=== PATIENT | male | born 1985 | race Caucasian/White ===

== ENCOUNTER 2021-06-20 07:47 | Emergency (ER) | payer OTHER ==
[2021-06-20 08:48] LABS: BASOPHIL 0.4 % (0-2); EOSINOPHIL 3.4 % (0-5); HCT 45.6 % (42.0-52.0); HGB 15.6 g/dl (13.2-18.0); LYMPHOCYTE 18.4 % (15-48); MCH 30.1 pg (25.0-31.0); MCHC 34.2 g/dL (32.0-36.0); MCV 87.9 fL (78.0-100.0); MONOCYTE 7.3 % (0-12); MPV 9.7 fL (6.0-9.5); NEUTROPHIL 69.7 % (41-80); NRBC 0; PLT 290 K/uL (150-400); RBC 5.19 M/uL (4.70-6.00); RDW 12.1 % (11.5-14.0); WBC 12.5 K/uL (4.0-10.5)
[2021-06-20 09:31] LABS: ALBUMIN 3.7 g/dL (3.4-5.0); BILIRUBIN - TOTAL 0.6 mg/dL (0.2-1.0); BUN/CREAT RATIO (CALC) 21.9 RATIO; CREATININE 0.64 mg/dL (0.67-1.17); GLOBULIN (CALCULATION) 3.4 g/dL; POTASSIUM 3.8 mmol/L (3.5-5.1); TOTAL PROTEIN 7.1 g/dL (6.4-8.2)
[2021-06-20 09:33] LABS: CORONAVIRUS 2019 SARS-COV-2 NEGATIVE (NEGATIVE); INFLUENZA A NAA NEGATIVE (NEGATIVE)
[2021-06-20] MEDS ORDERED: CEFPODOXIME PR200 MG PO (09:52)
[2021-06-20] MEDS ORDERED: ONDANSETRON ODT4 MG PO (09:52)
[2021-06-20] MEDS ORDERED: AZITHROMYCIN250 MG PO (09:52)
[2021-06-20] MEDS ORDERED: TESSALON PERLE100 M1 PO (09:52)
== END 2021-06-20 12:39 | disposition home or self-care (01) ==
LOC: FER 07:47
PROVIDERS: Internal Medicine
DX: J18.9 Pneumonia, unspecified organism (principal); I10 Essential (primary) hypertension; F17.210 Nicotine dependence, cigarettes, uncomplicated; Z20.822 Contact with and (suspected) exposure to COVID-19
CPT/HCPCS: 36415; 71045; 80053; 85025; J0456; J0696; J3490; J7050; U0002